=== PATIENT | male | born 1960 | race African-American/Black ===

== ENCOUNTER 2017-04-17 11:56 | Inpatient (IN) | payer MEDICARE, MEDICAID ==
[~2017-04-17] VITALS: Ht 200.7 cm; Wt 99.8 kg
[~2017-04-17 11:56] MED LIST: ABILIFY2 MG ORAL; ABILIFY5 MG ORAL; ALBUTEROL2.5 MG/3 M INH; ALLOPURINOL300 M1 ORAL; ASPIR 8181 MG ORAL; ATIVAN2 MG ORAL; ATORVASTATIN CA20 MG ORAL; BENAZEPRIL HCL10 MG ORAL; BISACODYL5 MG ORAL; CIPROFLOXACIN500 M2 ORAL; COGENTIN1 MG ORAL; DEPAKOTE250 MG PO; DEPAKOTE500 MG PO; DILANTIN100 MG ORAL; DILANTIN100 MG PO; DOCUSATE SODIU100 MG ORAL; LOVENOX10 M4 SUBQ; MAGNESIUM HYDR500 GM MC; METFORMIN HCL500 M1 ORAL; MINERAL OIL EN133 ML RC; MYLANTA30 M1 PO; NITROSTAT0.4 M1 SL; NORCO 5-325 TA1 EACH ORAL; PAXIL10 MG ORAL; PHENYTOIN SODI100 MG PO; PROAIR HFA8.5 GM INH; PROTONIX40 MG ORAL; REGLAN5 MG ORAL; RESTORIL15 MG ORAL; RISPERDAL2 MG ORAL; TYLENOL325 MG ORAL
[2017-04-17] MEDS ORDERED: Sodium Chloride 500ML 500 ML IV ONE (12:13)
[2017-04-17 12:19] VITALS: BP 101/69
[2017-04-17] MEDS ORDERED: Morphine Sulfate 4mg/ml Inj IVP ONE (12:30)
--- NOTE | 2017-04-17 14:14 | Diagnostic Imaging Report ---
Indication: Chest pain Technique: XRAY Chest 1v Comparison: 12/14/2014 Findings: Left-sided dual-lead pacer unchanged in position with lead tips projecting over the expected regions of the right atrium and ventricle. Heart size and mediastinal contours are stable. There is no focal airspace consolidation, pleural effusion or pneumothorax. No acute osseous abnormality is identified. Impression: No radiographic evidence of acute cardiopulmonary disease. No significant interval change compared to the prior exam.
[2017-04-17 14:30] VITALS: BP 112/78
[2017-04-17 14:35] LABS: BASOPHILS % (AUTO) 0.9 % (0.0-2.0); EOSINOPHILS % (AUTO) 1.9 % (0.0-3.0); HEMATOCRIT 42.8 % (42.0-52.0); HEMOGLOBIN 13.8 G/DL (14.2-18.0); LYMPHOCYTES % (AUTO) 36.3 % (20.0-45.0); MEAN CORPUSCULAR VOLUME 89 FL (80-99); MONOCYTES % (AUTO) 6.7 % (1.0-10.0); NEUTROPHILS % (AUTO) 54.1 % (45.0-75.0); PLATELET COUNT 212 K/UL (150-450); RED BLOOD COUNT 4.82 M/UL (4.70-6.10); RED CELL DISTRIBUTION WIDTH 13.5 % (11.6-14.8); WHITE BLOOD COUNT 5.2 K/UL (4.8-10.8)
[2017-04-17 14:36] LABS: ANION GAP 4 mmol/L (5-15); BLOOD UREA NITROGEN 15 mg/dL (7-18); CALCIUM 9.6 MG/DL (8.5-10.1); CARBON DIOXIDE 33 MMOL/L (21-32); CHLORIDE 99 MMOL/L (98-107); CREATININE 0.8 MG/DL (0.55-1.30); POTASSIUM 4.6 MMOL/L (3.5-5.1); SODIUM 136 MMOL/L (136-145)
[2017-04-17 14:49] LABS: ALANINE AMINOTRANSFERASE 32 U/L (12-78); ALBUMIN 3.2 G/DL (3.4-5.0); ALBUMIN/GLOBULIN RATIO 0.7 (1.0-2.7); ALKALINE PHOSPHATASE 83 U/L (46-116); ASPARTATE AMINO TRANSFERASE 24 U/L (15-37); BILIRUBIN,TOTAL 0.2 MG/DL (0.2-1.0); CKMB 0.5 NG/ML (0.0-3.6); CREATINE KINASE 86 U/L (26-308)
--- NOTE | 2017-04-17 15:07 | Emergency Room Report ---
History of Present Illness General Chief Complaint: Chest Pain Source: Patient Present Illness HPI 56-year-old male presents to ED complaining of chest pain started earlier today after exercising. His pain was a 10 out of 10, pressure-like, left-sided, nonradiating. Patient lives in senior care facility. Patient was given aspirin and nitroglycerin x3 by EMS. States chest pain improved. Denies drug use. Admits to smoking. No aggravating relieving factors. Denies any other associated symptoms Allergies: Coded Allergies: PENICILLIN (Unverified Allergy, Mild, 10/24/14) IBUPROFEN (Unverified Allergy, Unknown, 07/25/14) PENICILLIN G (Unverified Allergy, Unknown, 04/06/15) PENICILLINS (Unverified Allergy, Unknown, 07/25/14) Patient History Past Medical History: HTN, CAD, asthma, GERD Past Surgical History: pacemaker Pertinent Family History: none Social History: Denies: smoking, alcohol use, drug use Immunizations: UTD Reviewed Nursing Documentation: PMH: Agreed, PSxH: Agreed Nursing Documentation-PMH Hx Cardiac Problems: Yes - CP Hx Hypertension: Yes Hx Pacemaker: Yes - Hep C Hx Asthma: Yes Hx Diabetes: Yes Hx Cancer: No Hx Gastrointestinal Problems: Yes - GERD Hx Neurological Problems: Yes Hx Seizures: Yes Hx Headaches: Yes Review of Systems All Other Systems: negative except mentioned in HPI Physical Exam Vital Signs Date Time Temp Pulse Resp B/P (MAP) Pulse Ox O2 Delivery O2 Flow Rate FiO2 04/17/17 12:05 98.8 94 16 103/69 99 Room Air Sp02 EP Interpretation: reviewed, normal General Appearance: no apparent distress, alert, GCS 15, non-toxic Head: normocephalic, atraumatic Eyes: bilateral eye normal inspection, bilateral eye PERRL ENT: hearing grossly normal, normal pharynx, no angioedema, normal voice Neck: full range of motion, supple/symm/no masses Respiratory: chest non-tender, lungs clear, normal breath sounds, speaking full sentences Cardiovascular #1: regular rate, rhythm, no edema Cardiovascular #2: 2+ carotid (R), 2+ carotid (L), 2+ radial (R), 2+ radial (L) , 2+ dorsalis pedis (R), 2+ dorsalis pedis (L) Gastrointestinal: normal bowel sounds, non tender, soft, non-distended, no guarding, no rebound Rectal: deferred Genitourinary: normal inspection, no CVA tenderness Musculoskeletal: back normal, gait/station normal, normal range of motion, non- tender Neurologic: alert, oriented x3, responsive, motor strength/tone normal, sensory intact, speech normal Psychiatric: judgement/insight normal, memory normal, mood/affect normal, no suicidal/homicidal ideation Reflexes: 3+ bicep (R), 3+ bicep (L), 3+ tricep (R), 3+ tricep (L), 3+ knee (R) , 3+ knee (L) Skin: normal color, no rash, warm/dry, well hydrated Lymphatic: no adenopathy Medical Decision Making Diagnostic Impression: Primary Impression: ACS (acute coronary syndrome) ER Course Hospital Course 56-year-old male presents ED complaining of chest pain. improved after NTG Differential diagnoses include: AL/unstable angina, contusion, muscle strain, PTX, rib fracture Clinical course Patient placed on stretcher. on clinical research monitor. After initial history and physical I ordered labs, EKG, chest x-ray, morphine labs reviewed- no leukocytosis, hb/hct stable,electrolytes ok, trop negative, UTox negative EKG - NSR, no acute ischemic changes interpreted by me Chest x-ray- pacemaker, no acute process Case discussed with Dr. Leon and he agreed to accept the patient to his service for further care and support I. I feel this is a highly complex case requiring extensive working including EKG/Rhythm strip, Xray/CT/US, Blood/urine lab work, repeat exams while in ED, and administration of strong opiates/narcotics for pain control, admission to hospital or close patient follow up. Diagnosis - ACS admitted to telemetry in serious condition Labs Test 04/17/17 13:45 White Blood Count 5.2 K/UL (4.8-10.8) Red Blood Count 4.82 M/UL (4.70-6.10) Hemoglobin 13.8 G/DL (14.2-18.0) Hematocrit 42.8 % (42.0-52.0) Mean Corpuscular Volume 89 FL (80-99) Mean Corpuscular Hemoglobin 28.7 PG (27.0-31.0) Mean Corpuscular Hemoglobin Concent 32.2 G/DL (32.0-36.0) Red Cell Distribution Width 13.5 % (11.6-14.8) Platelet Count 212 K/UL (150-450) Mean Platelet Volume 5.1 FL (6.5-10.1) Neutrophils (%) (Auto) 54.1 % (45.0-75.0) Lymphocytes (%) (Auto) 36.3 % (20.0-45.0) Monocytes (%) (Auto) 6.7 % (1.0-10.0) Eosinophils (%) (Auto) 1.9 % (0.0-3.0) Basophils (%) (Auto) 0.9 % (0.0-2.0) Sodium Level 136 MMOL/L (136-145) Potassium Level 4.6 MMOL/L (3.5-5.1) Chloride Level 99 MMOL/L (98-107) Carbon Dioxide Level 33 MMOL/L (21-32) Anion Gap 4 mmol/L (5-15) Blood Urea Nitrogen 15 mg/dL (7-18) Creatinine 0.8 MG/DL (0.55-1.30) Estimat Glomerular Filtration Rate > 60 mL/min (>60) Glucose Level 76 MG/DL (74-106) Calcium Level 9.6 MG/DL (8.5-10.1) Total Bilirubin 0.2 MG/DL (0.2-1.0) Aspartate Amino Transf (AST/SGOT) 24 U/L (15-37) Alanine Aminotransferase (ALT/SGPT) 32 U/L (12-78) Alkaline Phosphatase 83 U/L (46-116) Total Creatine Kinase 86 U/L (26-308) Creatine Kinase MB 0.5 NG/ML (0.0-3.6) Creatine Kinase MB Relative Index 0.5 Troponin I 0.000 ng/mL (0.000-0.056) Pro-B-Type Natriuretic Peptide 19 pg/mL (0-125) Total Protein 8.1 G/DL (6.4-8.2) Albumin 3.2 G/DL (3.4-5.0) Globulin 4.9 g/dL Albumin/Globulin Ratio 0.7 (1.0-2.7) Urine Opiates Screen Negative (NEGATIVE) Urine Barbiturates Screen Negative (NEGATIVE) Phencyclidine (PCP) Screen Negative (NEGATIVE) Urine Amphetamines Screen Negative (NEGATIVE) Urine Benzodiazepines Screen Negative (NEGATIVE) Urine Cocaine Screen Negative (NEGATIVE) Urine Marijuana (THC) Screen Negative (NEGATIVE) EKG Diagnostic Results Rate: normal Rhythm: NSR ST Segments: no acute changes ASA given to the pt in ED: No - given by ems Rhythm Strip Diag. Results EP Interpretation: yes Rhythm: NSR, no PVC's, no ectopy Chest X-Ray Diagnostic Results Chest X-Ray Diagnostic Results : Chest X-Ray Ordered: Yes # of Views/Limited/Complete: 1 View Indication: Chest Pain EP Interpretation: Yes Interpretation: no consolidation, no effusion, no pneumothorax, no acute cardiopulmonary disease, other - pacemaker Impression: No acute disease Electronically Signed by: Electronically signed by Nathan Rodriguez MD Last Vital Signs Date Time Temp Pulse Resp B/P (MAP) Pulse Ox O2 Delivery O2 Flow Rate FiO2 04/17/17 14:30 97.1 65 13 112/78 100 Room Air Status: improved Disposition: ADMITTED INPATIENT Condition: Serious Referrals: NON PHYSICIAN (PCP) NATHAN RODRIGUEZ M.D. Apr 17, 2017 15:07
[2017-04-17 16:20] VITALS: BP 121/77
[2017-04-17] MEDS ORDERED: Nitroglycerin Subl 0.4mg tab SL PRN (16:30)
[2017-04-17] MEDS ORDERED: Albuterol/Ipratropium 3ml neb HHN PRN (16:30)
[2017-04-17] MEDS ORDERED: Enalaprilat 2.5mg/2ml Inj IV PRN (16:30)
[2017-04-17] MEDS ORDERED: dilTIAZem HCl 25mg/5ml Inj IV PRN (16:30)
[2017-04-17] MEDS ORDERED: Miralax 17gm pkt ORAL PRN (16:30)
[2017-04-17] MEDS: Morphine Sulfate 2mg/ml Inj IVP PRN (18:43)
[2017-04-17 20:00] VITALS: BP 101/63
--- NOTE | 2017-04-17 20:07 | Cardiology Progress Note ---
Assessment/Plan Assessment/Plan [id number] Objective Last 24 Hour Vital Signs Date Time Temp Pulse Resp B/P (MAP) Pulse Ox O2 Delivery O2 Flow Rate FiO2 04/17/17 16:20 96.8 75 18 121/77 95 Room Air 04/17/17 15:09 65 13 112/78 100 Room Air 04/17/17 15:08 97.1 04/17/17 14:30 97.1 65 13 112/78 100 Room Air 04/17/17 12:30 Room Air 04/17/17 12:19 97.3 78 14 101/69 96 Room Air 04/17/17 12:05 98.8 94 16 103/69 99 Room Air Laboratory Tests Test 04/17/17 13:45 04/17/17 18:25 White Blood Count 5.2 K/UL (4.8-10.8) Red Blood Count 4.82 M/UL (4.70-6.10) Hemoglobin 13.8 G/DL (14.2-18.0) L Hematocrit 42.8 % (42.0-52.0) Mean Corpuscular Volume 89 FL (80-99) Mean Corpuscular Hemoglobin 28.7 PG (27.0-31.0) Mean Corpuscular Hemoglobin Concent 32.2 G/DL (32.0-36.0) Red Cell Distribution Width 13.5 % (11.6-14.8) Platelet Count 212 K/UL (150-450) Mean Platelet Volume 5.1 FL (6.5-10.1) L Neutrophils (%) (Auto) 54.1 % (45.0-75.0) Lymphocytes (%) (Auto) 36.3 % (20.0-45.0) Monocytes (%) (Auto) 6.7 % (1.0-10.0) Eosinophils (%) (Auto) 1.9 % (0.0-3.0) Basophils (%) (Auto) 0.9 % (0.0-2.0) Sodium Level 136 MMOL/L (136-145) Potassium Level 4.6 MMOL/L (3.5-5.1) Chloride Level 99 MMOL/L (98-107) Carbon Dioxide Level 33 MMOL/L (21-32) H Anion Gap 4 mmol/L (5-15) L Blood Urea Nitrogen 15 mg/dL (7-18) Creatinine 0.8 MG/DL (0.55-1.30) Estimat Glomerular Filtration Rate > 60 mL/min (>60) Glucose Level 76 MG/DL (74-106) Calcium Level 9.6 MG/DL (8.5-10.1) Total Bilirubin 0.2 MG/DL (0.2-1.0) Aspartate Amino Transf (AST/SGOT) 24 U/L (15-37) Alanine Aminotransferase (ALT/SGPT) 32 U/L (12-78) Alkaline Phosphatase 83 U/L (46-116) Total Creatine Kinase 86 U/L (26-308) Creatine Kinase MB 0.5 NG/ML (0.0-3.6) Creatine Kinase MB Relative Index 0.5 Troponin I 0.000 ng/mL (0.000-0.056) 0.000 ng/mL (0.000-0.056) Pro-B-Type Natriuretic Peptide 19 pg/mL (0-125) Total Protein 8.1 G/DL (6.4-8.2) Albumin 3.2 G/DL (3.4-5.0) L Globulin 4.9 g/dL Albumin/Globulin Ratio 0.7 (1.0-2.7) L Urine Opiates Screen Negative (NEGATIVE) Urine Barbiturates Screen Negative (NEGATIVE) Phencyclidine (PCP) Screen Negative (NEGATIVE) Urine Amphetamines Screen Negative (NEGATIVE) Urine Benzodiazepines Screen Negative (NEGATIVE) Urine Cocaine Screen Negative (NEGATIVE) Urine Marijuana (THC) Screen Negative (NEGATIVE) LYNDSEY TAYLOR Apr 17, 2017 20:07
[2017-04-17] MEDS ORDERED: Lexiscan 0.4mg/5ml syringe IV PRN (20:15)
[2017-04-17] MEDS: Phenytoin 100mg cap ORAL SCH (21:14)
[2017-04-17] MEDS: Heparin 5000 units/ml inj SUBQ SCH (21:21)
--- NOTE | 2017-04-17 21:45 | Consultation ---
DATE OF CONSULTATION: 04/17/2017 CONSULTING PHYSICIAN: Munir Rosa M.D. REFERRING PHYSICIAN: Anusha Leon M.D. REASON FOR REFERRAL: Chest pain. HISTORY OF PRESENT ILLNESS: This is a very unfortunate middle-aged gentleman with history of multiple medical problems including cardiac problems. Apparently he has had a history of stents put in few years ago, one stent indicate the patient apparently did some exercises with his upper extremities and got some cigarettes and eventually while smoking developed some pain in the chest as if it was being punched in the chest, lasted approximately 15 minutes or so, felt dizzy, asked somebody to help him sit and they sat him down and eventually the patient was brought to the emergency room at [facility]. The ambulance report indicates that the patient was complaining of chest pain for 20 minutes prior to their arrival, substernal, pressure-like 01/03. He resides in a convalescent facility. Apparently the patient is living in a wheelchair and the patient apparently has a history of angina, no nitroglycerin was given. EKG was performed. Aspirin and nitroglycerin was given. No shortness of breath. No neurological deficits. The patient was transferred to [facility] where he was admitted and this consultation subsequently requested by Dr. Leon to help manage the patient's pain. He does not have any chest pain at this time. He does not really remember what exactly exacerbated or relieved the pain. He has had a history of stent put in, but apparently as he recalls that was a different sensation that he is experiencing today. There are episodes of PND and two pillow orthopnea, occasionally sits up because of shortness of breath and notified the nurses because he is short of breath. He had a history of permanent pacemaker implantation in 2011. No cancer. PAST MEDICAL HISTORY: He indicates past medical history is positive for history of coronary disease as mentioned with stent, history of hypertension, diabetes mellitus, substance abuse, permanent pacemaker implantation. No history of heart attack. No cancer. No stroke. He does have hepatitis. He has COPD. No ulcers. No kidney problems. He does have cirrhosis of the liver. No thyroid problems, anemia, or arthritis. He has as mentioned history of pacemaker implantation. He also has a history of seizures. ALLERGIES: He is allergic to penicillin and Motrin. SOCIAL HISTORY: He used to drink and use drugs but he has quit those a few months ago. He still smokes. REVIEW OF SYSTEMS: GASTROINTESTINAL: Negative. GENITOURINARY: Negative. PULMONARY: Negative. CONSTITUTIONAL: Negative. PHYSICAL EXAMINATION: GENERAL: Shows to be middle-aged gentleman, in no respiratory distress, very difficult to understand him. NECK: Supple. No jugular venous distention. LUNGS: Clear to auscultation and percussion. CARDIAC: S1 is normal. S2 is normal. Regular rate and rhythm. No heaves, thrills, gallops, or rubs. ABDOMEN: Soft and nontender. Positive bowel sounds. EXTREMITIES: There is no clubbing, cyanosis, nor is there any edema. NEUROLOGICAL: He is awake, alert, responsive, and in no apparent distress. LABORATORY AND DIAGNOSTIC DATA: EKG shows normal sinus rhythm, no ST or T-wave abnormalities. Two sets of cardiac enzymes are negative. His blood tests shows sodium 132, potassium 4.3, chloride 99, bicarbonate 32, BUN of 15, creatinine 0.8, glucose of 76. Troponins are negative on two separate occasions but only about 5 hours apart. Albumin of 3.2. Tox screen is negative. Chest x-ray performed is fairly unremarkable. ASSESSMENT AND PLAN: 1. Chest pain. 2. Diabetes. 3. Hypertension. 4. Coronary artery disease status post stent. 5. History of permanent pacemaker implantation. 6. Hypertension. 7. history of seizures. 8. Hepatitis C history. 9. Cirrhosis of the liver. This patient was seen in cardiac consultation. Two sets of cardiac enzymes about 5 hours apart were negative. Repeat cardiac enzymes will be ordered for tomorrow morning. EKG is fairly unremarkable. Troponins are negative. It is possible that the pain may be reproducible on palpation of the chest wall. However, the patient has significant coronary artery disease and risk factors for coronary disease that warrants performing a perfusion imaging, this will be ordered for tomorrow morning. An echocardiogram will be ordered and the patient will be followed. Munir Rosa M.D. DR: Bin JOB#: [id number] CC:
[2017-04-18] VITALS: BP 93/65
[2017-04-18 04:00] VITALS: BP 113/68
[2017-04-18] MEDS: Morphine Sulfate 2mg/ml Inj IVP PRN ×3 (04:59→17:58)
[2017-04-18 08:00] VITALS: BP 117/76
[2017-04-18 08:34] LABS: BASOPHILS % (AUTO) 1.1 % (0.0-2.0); EOSINOPHILS % (AUTO) 2.3 % (0.0-3.0); HEMATOCRIT 40.9 % (42.0-52.0); HEMOGLOBIN 13.4 G/DL (14.2-18.0); MEAN CORPUSCULAR VOLUME 88 FL (80-99); MONOCYTES % (AUTO) 6.2 % (1.0-10.0); NEUTROPHILS % (AUTO) 43.4 % (45.0-75.0); PLATELET COUNT 197 K/UL (150-450); RED BLOOD COUNT 4.63 M/UL (4.70-6.10); RED CELL DISTRIBUTION WIDTH 13.2 % (11.6-14.8); WHITE BLOOD COUNT 3.6 K/UL (4.8-10.8)
[2017-04-18] MEDS ORDERED: Benazepril 10mg tab ORAL SCH (09:00)
[2017-04-18] MEDS ORDERED: PARoxetine 10mg tab ORAL SCH (09:00)
[2017-04-18] MEDS: Heparin 5000 units/ml inj SUBQ SCH ×2 (09:07→21:00)
[2017-04-18 09:22] LABS: CHOLESTEROL 188 MG/DL (< 200); HDL CHOLESTEROL 69 MG/DL (40-60); TRIGLYCERIDES 108 MG/DL (30-150)
--- NOTE | 2017-04-18 10:21 | History and Physical ---
History of Present Illness General Date patient seen: Apr 18, 2017 Reason for Hospitalization: Chest Pain Present Illness HPI 56-year-old male with hx of DM, psychosis, presents to ED complaining of chest pain started earlier today after exercising. His pain was a 10 out of 10, pressure-like, left-sided, nonradiating. Patient lives in half-way facility. Patient was given aspirin and nitroglycerin x3 by EMS. States chest pain improved. He is admitted to telemetry for further work up. Allergies: Coded Allergies: PENICILLIN (Unverified Allergy, Mild, 10/24/14) IBUPROFEN (Unverified Allergy, Unknown, 07/25/14) PENICILLIN G (Unverified Allergy, Unknown, 04/06/15) PENICILLINS (Unverified Allergy, Unknown, 07/25/14) Medication History Scheduled Albuterol Sulfate* (Albuterol Sulfate Hhn*), 3 ML INH THREE TIMES A DAY, ( Reported) Allopurinol* (Allopurinol*), 300 MG ORAL DAILY, (Reported) Aripiprazole* (Abilify*), 5 MG ORAL BEDTIME, (Reported) Aripiprazole* (Abilify*), 5 MG ORAL DAILY Aspirin* (Aspir 81*), 81 MG ORAL DAILY, (Reported) Atorvastatin Calcium* (Atorvastatin Calcium*), 20 MG ORAL BEDTIME, (Reported) Benazepril Hcl* (Benazepril Hcl*), 10 MG ORAL DAILY, (Reported) Benztropine Mesylate (Cogentin 1mg*), 1 MG ORAL EVERY 12 HOURS, (Reported) Ciprofloxacin Hcl* (Ciprofloxacin Hcl*), 500 MG ORAL Q12H Docusate Sodium* (Docusate Sodium*), 100 MG ORAL BID, (Reported) Metformin Hcl* (Metformin Hcl*), 500 MG ORAL TWICE A DAY, (Reported) Mineral Oil (Mineral Oil Enema), 133 ML RC PRN, (Reported) Pantoprazole* (Protonix*), 40 MG ORAL DAILY, (Reported) Paroxetine Hcl* (Paxil*), 10 MG ORAL DAILY, (Reported) Phenytoin Sodium Extended* (Dilantin*), 200 MG PO BEDTIME, (Reported) Risperidone* (Risperdal*), 2 MG ORAL BID, (Reported) Risperidone* (Risperdal*), 2 MG ORAL DAILY Scheduled PRN Acetaminophen (Tylenol), 650 MG ORAL EVERY 4 HOURS PRN for Pain Scale (3-5), ( Reported) Al Hydroxide/mg Hydroxide (Mag-Al Liquid), 30 ML PO Q4HR PRN for prn, (Reported) Albuterol Sulfate* (Proair Hfa*), 1 PUFF INH Q6H PRN for prn, (Reported) Bisacodyl* (Dulcolax*), 10 MG ORAL DAILY PRN for prn, (Reported) Lorazepam* (Ativan*), 1 MG ORAL EVERY 6 HOURS PRN for prn, (Reported) Nitroglycerin (Nitrostat), 0.4 MG SL Q5M X3 DOSES PRN for Prn Chest Pain, ( Reported) Miscellaneous Medications Magnesium Hydroxide (Magnesium Hydroxide), 500 GM MC, (Reported) Patient History Healthcare decision maker Resuscitation status Advanced Directive on File Past Medical/Surgical History Past Medical/Surgical History: (1) Cirrhosis of liver (2) Seizure disorder Review of Systems All Other Systems: negative except mentioned in HPI Physical Exam General Appearance: cachetic Lines, tubes and drains: peripheral Cardiovascular/Chest: normal peripheral pulses, normal rate Abdomen: normal bowel sounds, non tender Genitourinary/Rectal: normal genital exam, normal rectal exam Extremities: normal range of motion Skin Exam: normal pigmentation 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 Last 24 Hour Vital Signs Date Time Temp Pulse Resp B/P (MAP) Pulse Ox O2 Delivery O2 Flow Rate FiO2 04/18/17 09:06 117/76 04/18/17 08:00 97.9 61 21 117/76 96 Room Air 04/18/17 04:00 60 04/18/17 04:00 97.7 60 20 113/68 94 Room Air 04/18/17 00:00 97.7 80 18 93/65 92 Room Air 04/18/17 00:00 76 04/17/17 20:00 71 04/17/17 20:00 62 20 Room Air 21 04/17/17 20:00 98.1 63 20 101/63 93 Room Air 04/17/17 16:20 96.8 75 18 121/77 95 Room Air 04/17/17 15:09 65 13 112/78 100 Room Air 04/17/17 15:08 97.1 04/17/17 14:30 97.1 65 13 112/78 100 Room Air 04/17/17 12:30 Room Air 04/17/17 12:19 97.3 78 14 101/69 96 Room Air 04/17/17 12:05 98.8 94 16 103/69 99 Room Air Intake and Output 04/17/17 04/18/17 18:59 06:59 Intake Total 0 ml 200 ml Output Total 550 ml Balance 0 ml -350 ml Intake Oral 0 ml 200 ml Output Urine Total 550 ml Laboratory Tests Test 04/17/17 13:45 04/17/17 18:25 04/18/17 07:50 White Blood Count 5.2 K/UL (4.8-10.8) 3.6 K/UL (4.8-10.8) L Red Blood Count 4.82 M/UL (4.70-6.10) 4.63 M/UL (4.70-6.10) L Hemoglobin 13.8 G/DL (14.2-18.0) L 13.4 G/DL (14.2-18.0) L Hematocrit 42.8 % (42.0-52.0) 40.9 % (42.0-52.0) L Mean Corpuscular Volume 89 FL (80-99) 88 FL (80-99) Mean Corpuscular Hemoglobin 28.7 PG (27.0-31.0) 28.9 PG (27.0-31.0) Mean Corpuscular Hemoglobin Concent 32.2 G/DL (32.0-36.0) 32.7 G/DL (32.0-36.0) Red Cell Distribution Width 13.5 % (11.6-14.8) 13.2 % (11.6-14.8) Platelet Count 212 K/UL (150-450) 197 K/UL (150-450) Mean Platelet Volume 5.1 FL (6.5-10.1) L 4.9 FL (6.5-10.1) L Neutrophils (%) (Auto) 54.1 % (45.0-75.0) 43.4 % (45.0-75.0) L Lymphocytes (%) (Auto) 36.3 % (20.0-45.0) 47.0 % (20.0-45.0) H Monocytes (%) (Auto) 6.7 % (1.0-10.0) 6.2 % (1.0-10.0) Eosinophils (%) (Auto) 1.9 % (0.0-3.0) 2.3 % (0.0-3.0) Basophils (%) (Auto) 0.9 % (0.0-2.0) 1.1 % (0.0-2.0) Sodium Level 136 MMOL/L (136-145) Potassium Level 4.6 MMOL/L (3.5-5.1) Chloride Level 99 MMOL/L (98-107) Carbon Dioxide Level 33 MMOL/L (21-32) H Anion Gap 4 mmol/L (5-15) L Blood Urea Nitrogen 15 mg/dL (7-18) Creatinine 0.8 MG/DL (0.55-1.30) Estimat Glomerular Filtration Rate > 60 mL/min (>60) Glucose Level 76 MG/DL (74-106) Calcium Level 9.6 MG/DL (8.5-10.1) Total Bilirubin 0.2 MG/DL (0.2-1.0) Aspartate Amino Transf (AST/SGOT) 24 U/L (15-37) Alanine Aminotransferase (ALT/SGPT) 32 U/L (12-78) Alkaline Phosphatase 83 U/L (46-116) Total Creatine Kinase 86 U/L (26-308) Creatine Kinase MB 0.5 NG/ML (0.0-3.6) Creatine Kinase MB Relative Index 0.5 Troponin I 0.000 ng/mL (0.000-0.056) 0.000 ng/mL (0.000-0.056) 0.000 ng/mL (0.000-0.056) Pro-B-Type Natriuretic Peptide 19 pg/mL (0-125) Total Protein 8.1 G/DL (6.4-8.2) Albumin 3.2 G/DL (3.4-5.0) L Globulin 4.9 g/dL Albumin/Globulin Ratio 0.7 (1.0-2.7) L Urine Opiates Screen Negative (NEGATIVE) Urine Barbiturates Screen Negative (NEGATIVE) Phencyclidine (PCP) Screen Negative (NEGATIVE) Urine Amphetamines Screen Negative (NEGATIVE) Urine Benzodiazepines Screen Negative (NEGATIVE) Urine Cocaine Screen Negative (NEGATIVE) Urine Marijuana (THC) Screen Negative (NEGATIVE) Prothrombin Time 10.0 SEC (9.30-11.50) Prothromb Time International Ratio 1.0 (0.9-1.1) Activated Partial Thromboplast Time 30 SEC (23-33) C-Reactive Protein, Quantitative 0.5 mg/dL (0.00-0.90) Triglycerides Level 108 MG/DL (30-150) Cholesterol Level 188 MG/DL (< 200) LDL Cholesterol 100 mg/dL (<100) HDL Cholesterol 69 MG/DL (40-60) H Cholesterol/HDL Ratio 2.7 (3.3-4.4) L Thyroid Stimulating Hormone (TSH) 0.634 uiU/mL (0.358-3.740) Height (Feet): 6 Height (Inches): 7.00 Weight (Pounds): 220 Medications Current Medications Medications (Trade) Dose Ordered Sig/Leidy Route PRN Reason Start Time Stop Time Status Last Admin Dose Admin Acetaminophen (Tylenol) 650 mg Q4H PRN ORAL FEVER 04/17/17 16:30 05/17/17 16:29 Albuterol/ Ipratropium (Albuterol/ Ipratropium) 3 ml Q4H PRN HHN Shortness of Breath 04/17/17 16:30 04/22/17 16:29 Allopurinol (Allopurinol) 300 mg DAILY ORAL 04/18/17 09:00 05/18/17 08:59 04/18/17 09:06 Aripiprazole (Abilify) 5 mg BEDTIME ORAL 04/17/17 21:00 05/17/17 20:59 04/17/17 21:14 Benazepril HCl (Lotensin) 10 mg DAILY ORAL 04/18/17 09:00 05/18/17 08:59 04/18/17 09:06 Diltiazem HCl (Cardizem) 10 mg Q1H PRN IV heart rate more than 120, 04/17/17 16:30 05/17/17 16:29 Enalaprilat (Vasotec) 2.5 mg Q6H PRN IV sbp more than 160 04/17/17 16:30 05/17/17 16:29 Heparin Sodium (Porcine) (Heparin 5000 units/ml) 5,000 units EVERY 12 HOURS SUBQ 04/17/17 21:00 05/17/17 20:59 04/18/17 09:07 Morphine Sulfate (Morphine Sulfate) 2 mg Q4H PRN IVP severe Pain (Pain Scale 7-10) 04/17/17 16:30 04/24/17 16:29 04/18/17 04:59 Nitroglycerin (Ntg) 0.4 mg Every 5 Minutes PRN SL Prn Chest Pain 04/17/17 16:30 05/17/17 16:29 Ondansetron HCl (Zofran) 4 mg Q6H PRN IVP Nausea & Vomiting 04/17/17 16:30 05/17/17 16:29 Pantoprazole (Protonix) 40 mg DAILY ORAL 04/18/17 09:00 05/18/17 08:59 04/18/17 09:06 Paroxetine HCl (Paxil) 10 mg DAILY ORAL 04/18/17 09:00 05/18/17 08:59 04/18/17 09:06 Phenytoin (Dilantin) 200 mg BEDTIME ORAL 04/17/17 21:00 05/17/17 20:59 04/17/17 21:14 Polyethylene Glycol (Miralax) 17 gm DAILYPRN PRN ORAL Constipation 04/17/17 16:30 05/17/17 16:29 Regadenoson (Lexiscan) 0.4 mg ONCE PRN IV STRESS TEST 04/17/17 20:15 04/18/17 23:59 Risperidone (RisperDAL) 2 mg BID ORAL 04/17/17 18:00 05/17/17 17:59 04/18/17 09:06 Temazepam (Restoril) 15 mg HSPRN PRN ORAL Insomnia 04/17/17 16:30 04/24/17 16:29 Assessment/Plan Problem List: (1) ACS (acute coronary syndrome) ICD Codes: I24.9 - Acute ischemic heart disease, unspecified SNOMED: 056069278 (2) Seizure disorder ICD Codes: G40.909 - Epilepsy, unspecified, not intractable,without status epilepticus SNOMED: 047647975 (3) Cirrhosis of liver ICD Codes: K74.60 - Cirrhosis of liver SNOMED: 78150064 (4) Diabetes mellitus ICD Codes: E11.9 - Type 2 diabetes mellitus without complications SNOMED: 32366353 Assessment/Plan serial ekg, troponin, echo cardiology work up/ echo sliding scale continue psychiatric meds. dvt prophylaxis. NEYAMR PAYTON Apr 18, 2017 10:21
[2017-04-18 12:00] VITALS: BP 95/59
--- NOTE | 2017-04-18 13:47 | Cardiology Progress Note ---
Assessment/Plan Assessment/Plan 1. Chest pain. 2. Diabetes. 3. Hypertension. 4. Coronary artery disease status post stent. 5. History of permanent pacemaker implantation. 6. Hypertension. 7. history of seizures. 8. Hepatitis C history. 9. Cirrhosis of the liver. trop neg ekg neg tele reviewed persoanlly as vs ap vp emerging media stress test clinsially and by ekg neg await Cardiolite perfusion results ok to dc back if neg ecotrin and lipitor to be continued Subjective Cardiovascular: Denies: chest pain, lightheadedness, palpitations Respiratory: Denies: shortness of breath Gastrointestinal/Abdominal: Denies: abdominal pain Genitourinary: Denies: burning Objective Last 24 Hour Vital Signs Date Time Temp Pulse Resp B/P (MAP) Pulse Ox O2 Delivery O2 Flow Rate FiO2 04/18/17 12:00 97.5 60 19 95/59 97 Room Air 04/18/17 09:06 117/76 04/18/17 08:00 97.9 61 21 117/76 96 Room Air 04/18/17 06:33 60 18 Room Air 04/18/17 04:00 60 04/18/17 04:00 97.7 60 20 113/68 94 Room Air 04/18/17 00:00 97.7 80 18 93/65 92 Room Air 04/18/17 00:00 76 04/17/17 20:00 71 04/17/17 20:00 62 20 Room Air 21 04/17/17 20:00 98.1 63 20 101/63 93 Room Air 04/17/17 16:20 96.8 75 18 121/77 95 Room Air 04/17/17 15:09 65 13 112/78 100 Room Air 04/17/17 15:08 97.1 04/17/17 14:30 97.1 65 13 112/78 100 Room Air General Appearance: no apparent distress, alert Neck: supple Cardiovascular: normal rate, regular rhythm Respiratory/Chest: lungs clear, normal breath sounds Abdomen: normal bowel sounds, non tender, soft Extremities: no swelling Intake and Output 04/17/17 04/18/17 19:00 07:00 Intake Total 0 ml 200 ml Output Total 550 ml Balance 0 ml -350 ml Intake Oral 0 ml 200 ml Output Urine Total 550 ml Laboratory Tests Test 04/17/17 13:45 1/22/18 18:25 04/18/17 07:50 White Blood Count 5.2 K/UL (4.8-10.8) 3.6 K/UL (4.8-10.8) L Red Blood Count 4.82 M/UL (4.70-6.10) 4.63 M/UL (4.70-6.10) L Hemoglobin 13.8 G/DL (14.2-18.0) L 13.4 G/DL (14.2-18.0) L Hematocrit 42.8 % (42.0-52.0) 40.9 % (42.0-52.0) L Mean Corpuscular Volume 89 FL (80-99) 88 FL (80-99) Mean Corpuscular Hemoglobin 28.7 PG (27.0-31.0) 28.9 PG (27.0-31.0) Mean Corpuscular Hemoglobin Concent 32.2 G/DL (32.0-36.0) 32.7 G/DL (32.0-36.0) Red Cell Distribution Width 13.5 % (11.6-14.8) 13.2 % (11.6-14.8) Platelet Count 212 K/UL (150-450) 197 K/UL (150-450) Mean Platelet Volume 5.1 FL (6.5-10.1) L 4.9 FL (6.5-10.1) L Neutrophils (%) (Auto) 54.1 % (45.0-75.0) 43.4 % (45.0-75.0) L Lymphocytes (%) (Auto) 36.3 % (20.0-45.0) 47.0 % (20.0-45.0) H Monocytes (%) (Auto) 6.7 % (1.0-10.0) 6.2 % (1.0-10.0) Eosinophils (%) (Auto) 1.9 % (0.0-3.0) 2.3 % (0.0-3.0) Basophils (%) (Auto) 0.9 % (0.0-2.0) 1.1 % (0.0-2.0) Sodium Level 136 MMOL/L (136-145) Potassium Level 4.6 MMOL/L (3.5-5.1) Chloride Level 99 MMOL/L (98-107) Carbon Dioxide Level 33 MMOL/L (21-32) H Anion Gap 4 mmol/L (5-15) L Blood Urea Nitrogen 15 mg/dL (7-18) Creatinine 0.8 MG/DL (0.55-1.30) Estimat Glomerular Filtration Rate > 60 mL/min (>60) Glucose Level 76 MG/DL (74-106) Calcium Level 9.6 MG/DL (8.5-10.1) Total Bilirubin 0.2 MG/DL (0.2-1.0) Aspartate Amino Transf (AST/SGOT) 24 U/L (15-37) Alanine Aminotransferase (ALT/SGPT) 32 U/L (12-78) Alkaline Phosphatase 83 U/L (46-116) Total Creatine Kinase 86 U/L (26-308) Creatine Kinase MB 0.5 NG/ML (0.0-3.6) Creatine Kinase MB Relative Index 0.5 Troponin I 0.000 ng/mL (0.000-0.056) 0.000 ng/mL (0.000-0.056) 0.000 ng/mL (0.000-0.056) Pro-B-Type Natriuretic Peptide 19 pg/mL (0-125) Total Protein 8.1 G/DL (6.4-8.2) Albumin 3.2 G/DL (3.4-5.0) L Globulin 4.9 g/dL Albumin/Globulin Ratio 0.7 (1.0-2.7) L Urine Opiates Screen Negative (NEGATIVE) Urine Barbiturates Screen Negative (NEGATIVE) Phencyclidine (PCP) Screen Negative (NEGATIVE) Urine Amphetamines Screen Negative (NEGATIVE) Urine Benzodiazepines Screen Negative (NEGATIVE) Urine Cocaine Screen Negative (NEGATIVE) Urine Marijuana (THC) Screen Negative (NEGATIVE) Prothrombin Time 10.0 SEC (9.30-11.50) Prothromb Time International Ratio 1.0 (0.9-1.1) Activated Partial Thromboplast Time 30 SEC (23-33) C-Reactive Protein, Quantitative 0.5 mg/dL (0.00-0.90) Triglycerides Level 108 MG/DL (30-150) Cholesterol Level 188 MG/DL (< 200) LDL Cholesterol 100 mg/dL (<100) HDL Cholesterol 69 MG/DL (40-60) H Cholesterol/HDL Ratio 2.7 (3.3-4.4) L Thyroid Stimulating Hormone (TSH) 0.634 uiU/mL (0.358-3.740) LYNDSEY TAYLOR Apr 18, 2017 13:47
[2017-04-18] MEDS ORDERED: Aspirin EC 81mg tab ORAL SCH (14:00)
--- NOTE | 2017-04-18 15:55 | Diagnostic Imaging Report ---
Indications: 56-year-old male with chest pain, prior myocardial infarction Technique: Single day single isotope protocol utilized. Initially, resting images obtained using IV administration 10.2 millicuries 99M technetium Myoview. Subsequently, patient underwent treadmill stress testing. See cardiology report for details. During treadmill testing, IV administration 32 mCi 99 M technetium Myoview. SPECT and planar images obtained. SPECT images gated to 8 phases of the cardiac cycle were also obtained, and reformatted into cine images for evaluation of ejection fraction. Comparison: none Findings: Per cardiology report, patient experienced fatigue. Per cardiology report, resting EKG demonstrates normal sinus rhythm. Patient reached a peak heart rate of 137 bpm, just short of the target heart rate [address] changes reported during infusion. Imaging demonstrates a small fixed perfusion defect of the apex that extends slightly into the anteroseptal wall. No definite reversible perfusion defects are demonstrated. Calculated post stress ejection fraction 65%. No focal wall motion abnormality demonstrated Impression: Nonischemic clinical response to pharmacologic stress, per cardiology report Nonischemic electrocardiographic response to pharmacologic stress, per cardiology report Small fixed apical and anteroseptal perfusion defect,, likely related to stated clinical history of prior infarct. Negative for ischemia, at level of stress attained Calculated post stress ejection fraction 65%
[2017-04-18 16:00] VITALS: BP 100/65
--- NOTE | 2017-04-18 17:15 | Cardiology Report ---
APPROVED REPORT EXAM: Two-dimensional and M-mode echocardiogram with Doppler and color Doppler. INDICATION Left ventricular function M-Mode DIMENSIONS IVSd0.8 (0.7-1.1cm)Left Atrium (MM)3.5 (1.6-4.0cm) LVDd5.4 (3.5-5.6cm)Aortic Root3.0 (2.0-3.7cm) PWd0.9 (0.7-1.1cm)Aortic Cusp Exc.2.0 (1.5-2.0cm) LVDs3.9 (2.5-4.0cm) PWs1.3 cm Normal left ventricular chamber size, systolic function and wall motion. Left ventricular ejection fraction estimated to be 55-60%. No evidence of left ventricular hypertrophy. No evidence of pericardial or pleural effusion. Mild right ventricular enlargement by 2D. Moderate right atrial enlargement by 2D. Focal aortic valve sclerosis with adequate cusp excursion. Thickened mitral valve leaflets with normal excursion. Mild mitral annulus and aortic root calcification. Pulmonic valve not well visualized. Normal tricuspid valve structure. IVC dilated at 2.4 cm and collapsible with respiration indicate increased RA pressure. Probable pacemaker wire present in the right side chambers. A color flow and spectral Doppler study was performed and revealed: No aortic regurgitation. Trace mitral regurgitation. Mitral diastolic velocities suggest reduced left ventricular relaxation c/w diastolic dysfunction grade 1. No tricuspid regurgitation.
[2017-04-18 20:45] VITALS: BP 92/62
[2017-04-18] MEDS ORDERED: Atorvastatin 20mg tab ORAL SCH (21:00)
[2017-04-18] MEDS: Phenytoin 100mg cap ORAL SCH (21:00)
--- NOTE | 2017-04-18 22:46 | General Progress Note ---
Assessment/Plan Status: stable, progressing Subjective Date patient seen: Apr 18, 2017 Neurologic/Psychiatric: Reports: anxiety, depressed Allergies: Coded Allergies: PENICILLIN (Unverified Allergy, Mild, 10/24/14) IBUPROFEN (Unverified Allergy, Unknown, 07/25/14) PENICILLIN G (Unverified Allergy, Unknown, 04/06/15) PENICILLINS (Unverified Allergy, Unknown, 07/25/14) Objective Last 24 Hour Vital Signs Date Time Temp Pulse Resp B/P (MAP) Pulse Ox O2 Delivery O2 Flow Rate FiO2 04/18/17 20:45 97.7 71 18 92/62 93 Room Air 04/18/17 19:55 74 20 Room Air 21 04/18/17 16:00 97.9 76 20 100/65 98 Room Air 04/18/17 16:00 70 04/18/17 12:00 97.5 60 19 95/59 97 Room Air 04/18/17 12:00 60 04/18/17 09:06 117/76 04/18/17 08:00 97.9 61 21 117/76 96 Room Air 04/18/17 08:00 60 04/18/17 06:33 60 18 Room Air 04/18/17 04:00 60 04/18/17 04:00 97.7 60 20 113/68 94 Room Air 04/18/17 00:00 97.7 80 18 93/65 92 Room Air 04/18/17 00:00 76 Intake and Output 04/17/17 04/18/17 19:00 07:00 Intake Total 0 ml 200 ml Output Total 550 ml Balance 0 ml -350 ml Intake Oral 0 ml 200 ml Output Urine Total 550 ml Laboratory Tests 04/18/17 07:50: White Blood Count 3.6L, Red Blood Count 4.63L, Hemoglobin 13.4L, Hematocrit 40.9L, Mean Corpuscular Volume 88, Mean Corpuscular Hemoglobin 28.9, Mean Corpuscular Hemoglobin Concent 32.7, Red Cell Distribution Width 13.2, Platelet Count 197, Mean Platelet Volume 4.9L, Neutrophils (%) (Auto) 43.4L, Lymphocytes (%) (Auto) 47.0H, Monocytes (%) (Auto) 6.2, Eosinophils (%) (Auto) 2.3, Basophils (%) (Auto) 1.1, Prothrombin Time 10.0, Prothromb Time International Ratio 1.0, Activated Partial Thromboplast Time 30, Troponin I 0.000, C-Reactive Protein, Quantitative 0.5, Triglycerides Level 108, Cholesterol Level 188, LDL Cholesterol 100, HDL Cholesterol 69H, Cholesterol/HDL Ratio 2.7L, Thyroid Stimulating Hormone (TSH) 0.634 Height (Feet): 6 Height (Inches): 7.00 Weight (Pounds): 220 General Appearance: no apparent distress, alert Tracey Hatfield M.D. Apr 18, 2017 22:46
--- NOTE | 2017-04-18 22:46 | Consultation ---
History of Present Illness General Date patient seen: Apr 17, 2017 Chief Complaint: Chest Pain Present Illness HPI the pt is well known to this md from [facility] his psychiatrist the pt has mmp including schizophrenia' the pt was bib an ambulance for severe ch3st pain in hospital he is anxious Allergies: Coded Allergies: PENICILLIN (Unverified Allergy, Mild, 10/24/14) IBUPROFEN (Unverified Allergy, Unknown, 07/25/14) PENICILLIN G (Unverified Allergy, Unknown, 04/06/15) PENICILLINS (Unverified Allergy, Unknown, 07/25/14) Medication History Scheduled Albuterol Sulfate* (Albuterol Sulfate Hhn*), 3 ML INH THREE TIMES A DAY, ( Reported) Allopurinol* (Allopurinol*), 300 MG ORAL DAILY, (Reported) Aripiprazole* (Abilify*), 5 MG ORAL BEDTIME, (Reported) Aripiprazole* (Abilify*), 5 MG ORAL DAILY Aspirin* (Aspir 81*), 81 MG ORAL DAILY, (Reported) Atorvastatin Calcium* (Atorvastatin Calcium*), 20 MG ORAL BEDTIME, (Reported) Benazepril Hcl* (Benazepril Hcl*), 10 MG ORAL DAILY, (Reported) Benztropine Mesylate (Cogentin 1mg*), 1 MG ORAL EVERY 12 HOURS, (Reported) Ciprofloxacin Hcl* (Ciprofloxacin Hcl*), 500 MG ORAL Q12H Docusate Sodium* (Docusate Sodium*), 100 MG ORAL BID, (Reported) Metformin Hcl* (Metformin Hcl*), 500 MG ORAL TWICE A DAY, (Reported) Mineral Oil (Mineral Oil Enema), 133 ML RC PRN, (Reported) Pantoprazole* (Protonix*), 40 MG ORAL DAILY, (Reported) Paroxetine Hcl* (Paxil*), 10 MG ORAL DAILY, (Reported) Phenytoin Sodium Extended* (Dilantin*), 200 MG PO BEDTIME, (Reported) Risperidone* (Risperdal*), 2 MG ORAL BID, (Reported) Risperidone* (Risperdal*), 2 MG ORAL DAILY Scheduled PRN Acetaminophen (Tylenol), 650 MG ORAL EVERY 4 HOURS PRN for Pain Scale (3-5), ( Reported) Al Hydroxide/mg Hydroxide (Mag-Al Liquid), 30 ML PO Q4HR PRN for prn, (Reported) Albuterol Sulfate* (Proair Hfa*), 1 PUFF INH Q6H PRN for prn, (Reported) Bisacodyl* (Dulcolax*), 10 MG ORAL DAILY PRN for prn, (Reported) Lorazepam* (Ativan*), 1 MG ORAL EVERY 6 HOURS PRN for prn, (Reported) Nitroglycerin (Nitrostat), 0.4 MG SL Q5M X3 DOSES PRN for Prn Chest Pain, ( Reported) Miscellaneous Medications Magnesium Hydroxide (Magnesium Hydroxide), 500 GM MC, (Reported) Patient History Healthcare decision maker Resuscitation status Advanced Directive on File Review of Systems Psychiatric: Reports: prior hx, anxiety, depressed feelings, emotional problems Physical Exam General Appearance: no apparent distress, alert Neurologic: alert, oriented x 3, responsive, normal mood/affect Last 24 Hour Vital Signs Date Time Temp Pulse Resp B/P (MAP) Pulse Ox O2 Delivery O2 Flow Rate FiO2 04/18/17 20:45 97.7 71 18 92/62 93 Room Air 04/18/17 19:55 74 20 Room Air 21 04/18/17 16:00 97.9 76 20 100/65 98 Room Air 04/18/17 16:00 70 04/18/17 12:00 97.5 60 19 95/59 97 Room Air 04/18/17 12:00 60 04/18/17 09:06 117/76 04/18/17 08:00 97.9 61 21 117/76 96 Room Air 04/18/17 08:00 60 04/18/17 06:33 60 18 Room Air 04/18/17 04:00 60 04/18/17 04:00 97.7 60 20 113/68 94 Room Air 04/18/17 00:00 97.7 80 18 93/65 92 Room Air 04/18/17 00:00 76 Intake and Output 04/17/17 04/18/17 19:00 07:00 Intake Total 0 ml 200 ml Output Total 550 ml Balance 0 ml -350 ml Intake Oral 0 ml 200 ml Output Urine Total 550 ml Laboratory Tests Test 04/18/17 07:50 White Blood Count 3.6 K/UL (4.8-10.8) L Red Blood Count 4.63 M/UL (4.70-6.10) L Hemoglobin 13.4 G/DL (14.2-18.0) L Hematocrit 40.9 % (42.0-52.0) L Mean Corpuscular Volume 88 FL (80-99) Mean Corpuscular Hemoglobin 28.9 PG (27.0-31.0) Mean Corpuscular Hemoglobin Concent 32.7 G/DL (32.0-36.0) Red Cell Distribution Width 13.2 % (11.6-14.8) Platelet Count 197 K/UL (150-450) Mean Platelet Volume 4.9 FL (6.5-10.1) L Neutrophils (%) (Auto) 43.4 % (45.0-75.0) L Lymphocytes (%) (Auto) 47.0 % (20.0-45.0) H Monocytes (%) (Auto) 6.2 % (1.0-10.0) Eosinophils (%) (Auto) 2.3 % (0.0-3.0) Basophils (%) (Auto) 1.1 % (0.0-2.0) Prothrombin Time 10.0 SEC (9.30-11.50) Prothromb Time International Ratio 1.0 (0.9-1.1) Activated Partial Thromboplast Time 30 SEC (23-33) Troponin I 0.000 ng/mL (0.000-0.056) C-Reactive Protein, Quantitative 0.5 mg/dL (0.00-0.90) Triglycerides Level 108 MG/DL (30-150) Cholesterol Level 188 MG/DL (< 200) LDL Cholesterol 100 mg/dL (<100) HDL Cholesterol 69 MG/DL (40-60) H Cholesterol/HDL Ratio 2.7 (3.3-4.4) L Thyroid Stimulating Hormone (TSH) 0.634 uiU/mL (0.358-3.740) Height (Feet): 6 Height (Inches): 7.00 Weight (Pounds): 220 Medications Current Medications Medications (Trade) Dose Ordered Sig/Leidy Route PRN Reason Start Time Stop Time Status Last Admin Dose Admin Acetaminophen (Tylenol) 650 mg Q4H PRN ORAL FEVER 04/17/17 16:30 05/17/17 16:29 Albuterol/ Ipratropium (Albuterol/ Ipratropium) 3 ml Q4H PRN HHN Shortness of Breath 04/17/17 16:30 04/22/17 16:29 Allopurinol (Allopurinol) 300 mg DAILY ORAL 04/18/17 09:00 05/18/17 08:59 04/18/17 09:06 Aripiprazole (Abilify) 5 mg BEDTIME ORAL 04/17/17 21:00 05/17/17 20:59 04/18/17 21:00 Aspirin (Ecotrin) 81 mg DAILY ORAL 04/18/17 14:00 05/18/17 13:59 04/18/17 14:09 Atorvastatin Calcium (Lipitor) 20 mg BEDTIME ORAL 04/18/17 21:00 05/18/17 20:59 04/18/17 21:00 Benazepril HCl (Lotensin) 10 mg DAILY ORAL 04/18/17 09:00 05/18/17 08:59 04/18/17 09:06 Diltiazem HCl (Cardizem) 10 mg Q1H PRN IV heart rate more than 120, 04/17/17 16:30 05/17/17 16:29 Enalaprilat (Vasotec) 2.5 mg Q6H PRN IV sbp more than 160 04/17/17 16:30 05/17/17 16:29 Heparin Sodium (Porcine) (Heparin 5000 units/ml) 5,000 units EVERY 12 HOURS SUBQ 04/17/17 21:00 05/17/17 20:59 04/18/17 09:07 Morphine Sulfate (Morphine Sulfate) 2 mg Q4H PRN IVP severe Pain (Pain Scale 7-10) 04/17/17 16:30 04/24/17 16:29 04/18/17 17:58 Nitroglycerin (Ntg) 0.4 mg Every 5 Minutes PRN SL Prn Chest Pain 04/17/17 16:30 05/17/17 16:29 Ondansetron HCl (Zofran) 4 mg Q6H PRN IVP Nausea & Vomiting 04/17/17 16:30 05/17/17 16:29 Pantoprazole (Protonix) 40 mg DAILY ORAL 04/18/17 09:00 05/18/17 08:59 04/18/17 09:06 Paroxetine HCl (Paxil) 10 mg DAILY ORAL 04/18/17 09:00 05/18/17 08:59 04/18/17 09:06 Phenytoin (Dilantin) 200 mg BEDTIME ORAL 04/17/17 21:00 05/17/17 20:59 04/18/17 21:00 Polyethylene Glycol (Miralax) 17 gm DAILYPRN PRN ORAL Constipation 04/17/17 16:30 05/17/17 16:29 Regadenoson (Lexiscan) 0.4 mg ONCE PRN IV STRESS TEST 04/17/17 20:15 04/18/17 23:59 Risperidone (RisperDAL) 2 mg BID ORAL 04/17/17 18:00 05/17/17 17:59 04/18/17 17:12 Temazepam (Restoril) 15 mg HSPRN PRN ORAL Insomnia 04/17/17 16:30 04/24/17 16:29 Assessment/Plan Status: stable Assessment/Plan schizoaffectice risperdal 6mg qhs paxil 20mg qh Tracey Lorenzo M.D. Apr 18, 2017 22:45
[2017-04-19] MEDS ORDERED: PARoxetine 10mg tab ORAL SCH (21:00)
--- NOTE | 2017-04-20 10:11 | Discharge Summary ---
Discharge Summary Hospital Course Date of Admission Apr 17, 2017 at 12:27 Date of Discharge Apr 18, 2017 at 23:28 Admitting Diagnosis ACUTE CORONARY SYNDROME HPI Gino Geronimo is a 56 year old male who was admitted on Apr 17, 2017 at 12:27 for Acute Coronary Syndrome Hospital Course [id number] Discharge Discharge Disposition Patient was discharged to SNF/Subacute Facility(03) Discharge Diagnoses: Carolina Barrios NP Apr 20, 2017 10:11
--- NOTE | 2017-04-20 17:00 | Discharge Summary 2 SIG ---
DATE OF ADMISSION: 04/17/2017 DATE OF DISCHARGE: 04/18/2017 CONSULTANTS: 1. Munir Rosa M.D. 2. Tracey Hatfield M.D. BRIEF HOSPITAL COURSE: The patient is a 56-year-old male with history of diabetes mellitus, psychosis, history of coronary artery disease with stent, diabetes mellitus, permanent pacemaker implantation, who lives at senior care presented to ED complaining of chest pain, described to be pressure like and located on the left chest, which is nonradiating. He was given aspirin and nitroglycerin x3 by EMS with improvement of symptoms. He admits to being a smoker. On evaluation at the ED, blood work did not show any leukocytosis. Initial troponin was negative. Urine toxicology was negative. EKG was in normal sinus rhythm with no acute ischemic changes. Chest x-ray showed no acute process with left-sided pacemaker seen on the left chest. Due to his risk factors, he was admitted to telemetry for cardiac monitoring. He was seen by Dr. Rosa. EKG and cardiac troponins were monitored. He had an echocardiogram done that showed ejection fraction of 55% to 60% with no evidence of left ventricular hypertrophy. No pericardial or pleural effusion. No aortic regurgitation. Cardiac troponins were negative. Cholesterol panel showed LDL of 100. TSH was normal. He was also seen by Dr. Hatfield. The patient has schizophrenia and was anxious. Abilify was discontinued. He was given Risperdal 6 mg at bedtime and Paxil 20 mg daily. He underwent a myocardial perfusion scan on 04/18/2017, results were nonischemic. There was a small fixed apical and anteroseptal perfusion defect likely related to stated history of prior infarct. It was negative for ischemia at the level of stress achieved. The patient was cleared for discharge home and was advised to follow up with PMD. FINAL DIAGNOSES: 1. Coronary artery disease. 2. Diabetes mellitus. 3. Hypertension. 4. Prior pacemaker implantation. 5. Hypertension. 6. Seizure disorder. 7. Schizoaffective disorder. 8. Liver cirrhosis. 9. Diabetes mellitus type 2. DISPOSITION: The patient was discharged back to [facility]. DISCHARGE MEDICATIONS: Refer to medication list. Continue with aspirin and Lipitor. Anusha Leon M.D. I have been assigned to dictate discharge summary on this account and I was not involved in the patient's management. Carolina Barrios N.P. DR: MONICO JOB#: [id number] CC: AZAEL
--- NOTE | 2017-04-26 18:50 | Cardiology Report ---
APPROVED REPORT EKG Measurement Heart [id number] Normal sinus rhythm Possible Left atrial enlargement Borderline ECG
== END 2017-04-18 23:28 | DRG 303 ==
LOC: EDBD 11:56 → EMR 12:22 → 2E 12:27 → EDBEDREQ 12:59
DX: I25.119 Atherosclerotic heart disease of native coronary artery with unspecified angina pectoris (principal); F25.9 Schizoaffective disorder, unspecified; K74.60 Unspecified cirrhosis of liver; E11.9 Type 2 diabetes mellitus without complications; I10 Essential (primary) hypertension; Z95.0 Presence of cardiac pacemaker; G40.909 Epilepsy, unspecified, not intractable, without status epilepticus; Z88.6 Allergy status to analgesic agent; Z88.0 Allergy status to penicillin; F17.200 Nicotine dependence, unspecified, uncomplicated; B19.20 Unspecified viral hepatitis C without hepatic coma; J44.9 Chronic obstructive pulmonary disease, unspecified; K21.9 Gastro-esophageal reflux disease without esophagitis
CPT/HCPCS: 36415; 71045; 78452; 80053; 80061; 80307; 82550; 82553; 82962; 83880; 84443; 84484; 85025; 85610; 85730; 86140; 87081; 93005; 93017; 93306; 94664; 99285

== ENCOUNTER 2017-06-06 22:21 | Emergency (ER) | payer MEDICARE, MEDICAID ==
[~2017-06-06] VITALS: Ht 200.7 cm; Wt 94.3 kg
[2017-06-06] MEDS ORDERED: PAXIL10 MG ORAL (23:05)
[2017-06-06] MEDS ORDERED: COGENTIN1 MG ORAL (23:05)
[2017-06-06] MEDS ORDERED: SERTRALINE HCL50 MG ORAL (23:05)
[2017-06-06] MEDS ORDERED: FLEET ENEMA133 ML RECTAL (23:05)
[2017-06-06] MEDS ORDERED: GABAPENTIN300 MG ORAL (23:05)
[2017-06-06] MEDS ORDERED: COLACE100 MG ORAL (23:05)
[2017-06-06] MEDS ORDERED: METFORMIN HCL500 M1 ORAL (23:05)
[2017-06-06] MEDS ORDERED: COREG3.125 MG ORAL (23:05)
[2017-06-06] MEDS ORDERED: ALUM-MAG HYDRO360 ML PO (23:05)
[2017-06-06] MEDS ORDERED: MILK OF MA400 MG/51 ORAL (23:05)
[2017-06-06] MEDS ORDERED: KEPPRA500 M4 ORAL (23:05)
[2017-06-06] MEDS ORDERED: DULCOLAX10 MG RC (23:05)
[2017-06-06] MEDS ORDERED: TYLENOL EXTRA500 MG ORAL (23:05)
[2017-06-06] MEDS ORDERED: NITROGLYCERIN0.4 MG SL (23:05)
[2017-06-06] MEDS ORDERED: CRANBERRY450 M3 PO (23:05)
[2017-06-06 23:06] LABS: BASOPHILS % (AUTO) 1.1 % (0.0-2.0); EOSINOPHILS % (AUTO) 3.2 % (0.0-3.0); HEMATOCRIT 40.8 % (42.0-52.0); HEMOGLOBIN 13.6 G/DL (14.2-18.0); LYMPHOCYTES % (AUTO) 45.3 % (20.0-45.0); MEAN CORPUSCULAR VOLUME 88 FL (80-99); MONOCYTES % (AUTO) 7.3 % (1.0-10.0); NEUTROPHILS % (AUTO) 43.1 % (45.0-75.0); PLATELET COUNT 200 K/UL (150-450); RED BLOOD COUNT 4.66 M/UL (4.70-6.10); WHITE BLOOD COUNT 4.3 K/UL (4.8-10.8)
[2017-06-06 23:21] LABS: ANION GAP 8 mmol/L (5-15); BLOOD UREA NITROGEN 18 mg/dL (7-18); CALCIUM 8.7 MG/DL (8.5-10.1); CARBON DIOXIDE 26 MMOL/L (21-32); CHLORIDE 103 MMOL/L (98-107); CREATININE 0.9 MG/DL (0.55-1.30); POTASSIUM 4.2 MMOL/L (3.5-5.1); SODIUM 137 MMOL/L (136-145)
[2017-06-06 23:35] LABS: ALANINE AMINOTRANSFERASE 35 U/L (12-78); ALBUMIN 2.9 G/DL (3.4-5.0); ALBUMIN/GLOBULIN RATIO 0.6 (1.0-2.7); ALKALINE PHOSPHATASE 79 U/L (46-116); ASPARTATE AMINO TRANSFERASE 24 U/L (15-37); BILIRUBIN,TOTAL 0.2 MG/DL (0.2-1.0); CKMB 0.6 NG/ML (0.0-3.6); CREATINE KINASE 120 U/L (26-308)
--- NOTE | 2017-06-07 00:12 | Emergency Room Report ---
History of Present Illness General Chief Complaint: Chest Pain Source: Patient Present Illness HPI This is a 57-year-old male who is a care home patient now. He has a history of cocaine abuse. He has a history of chronic chest pain, epilepsy and COPD. He has chief complaint of chest pain. His been ongoing for a week. He has a cough and congestion. No runny nose. No fever chills. No nausea no vomiting. Denies any other complaint. Pain is 7 out of 10. Receive aspirin and nitroglycerin by EMS. Allergies: Coded Allergies: PENICILLIN (Unverified Allergy, Mild, 10/24/14) IBUPROFEN (Unverified Allergy, Unknown, 07/25/14) PENICILLIN G (Unverified Allergy, Unknown, 04/06/15) PENICILLINS (Unverified Allergy, Unknown, 07/25/14) Patient History Past Medical History: see triage record, old chart reviewed Past Surgical History: other Pertinent Family History: none Social History: Reports: drug use - history of cocaine abuse Immunizations: other Reviewed Nursing Documentation: PMH: Agreed, PSxH: Agreed Nursing Documentation-PMH Hx Cardiac Problems: Yes - chest pain Hx Hypertension: Yes Hx Pacemaker: Yes - Hep C Hx Asthma: Yes Hx Diabetes: Yes Hx Cancer: No Hx Gastrointestinal Problems: Yes - GERD Hx Neurological Problems: Yes Hx Seizures: Yes Hx Headaches: Yes Review of Systems Eye: Denies: eye pain, blurred vision ENT: Denies: ear pain, nose congestion, throat swelling Respiratory: Reports: cough, Denies: shortness of breath Cardiovascular: Reports: chest pain, Denies: palpitations Gastrointestinal: Denies: abdominal pain, diarrhea, nausea, vomiting Musculoskeletal: Denies: back pain, joint pain Skin: Denies: rash Neurological: Denies: headache, numbness Endocrine: Denies: increased thirst, increased urine Hematologic/Lymphatic: Denies: easy bruising All Other Systems: negative except mentioned in HPI Physical Exam Vital Signs Date Time Temp Pulse Resp B/P (MAP) Pulse Ox O2 Delivery O2 Flow Rate FiO2 06/06/17 22:21 98.1 75 16 109/79 100 Room Air 98.1 vitals normal Sp02 EP Interpretation: reviewed, normal General Appearance: well appearing, no apparent distress, alert Head: normocephalic, atraumatic Eyes: bilateral eye PERRL, bilateral eye EOMI ENT: hearing grossly normal, normal pharynx Neck: full range of motion, supple, no meningismus Respiratory: chest non-tender, lungs clear, normal breath sounds Cardiovascular #1: regular rate, rhythm, no murmur Gastrointestinal: normal bowel sounds, non tender, no mass, no organomegaly, no bruit, non-distended Musculoskeletal: back normal, gait/station normal, normal range of motion Psychiatric: mood/affect normal Skin: warm/dry Medical Decision Making Diagnostic Impression: Primary Impression: Chest pain of uncertain etiology Additional Impression: Viral upper respiratory illness ER Course Patient with noncardiac chest pain. No evidence of ACS, PE, dissection to name a few. We'll discharge home. Lab Results Impression labs unremarkable EKG Diagnostic Results Rate: normal Rhythm: NSR ST Segments: no acute changes Rhythm Strip Diag. Results Rhythm Strip Time: 00:11 EP Interpretation: yes Rate: 70 Rhythm: NSR, no PVC's, no ectopy Chest X-Ray Diagnostic Results Chest X-Ray Diagnostic Results : Chest X-Ray Ordered: Yes # of Views/Limited/Complete: 1 View Indication: Chest Pain EP Interpretation: Yes Interpretation: no consolidation, no effusion, no pneumothorax Impression: No acute disease Electronically Signed by: Ramez Juarez MD Last Vital Signs Date Time Temp Pulse Resp B/P (MAP) Pulse Ox O2 Delivery O2 Flow Rate FiO2 06/06/17 22:32 75 16 Room Air 06/06/17 22:21 98.1 109/79 100 98.1 Status: improved Disposition: ER SNF Condition: Stable Referrals: NON PHYSICIAN (PCP) Patient Instructions: Nonspecific Chest Pain Additional Instructions: follow-up with your DrLissa 7 days. Return it worse. RAMEZ JUAREZ M.D. Jun 07, 2017 00:12
[2017-06-07 02:30] VITALS: BP 109/79
--- NOTE | 2017-06-07 10:29 | Diagnostic Imaging Report ---
Indication: Chest pain Technique: One view of the chest Comparison: none Findings: Suboptimal inspiration. There is bilateral basilar atelectasis. Lungs and pleural spaces are otherwise clear. Heart size is normal. There is left chest pacemaker Impression: Hypoventilatory exam with bibasilar atelectasis
--- NOTE | 2017-06-07 15:14 | Cardiology Report ---
APPROVED REPORT EKG Measurement Heart [id number] Normal sinus rhythm Possible Left atrial enlargement Borderline ECG
== END 2017-06-07 02:30 ==
LOC: EDBD 22:21 → EMR 22:42
DX: R07.9 Chest pain, unspecified (principal); J06.9 Acute upper respiratory infection, unspecified; E11.9 Type 2 diabetes mellitus without complications; K21.9 Gastro-esophageal reflux disease without esophagitis; B19.20 Unspecified viral hepatitis C without hepatic coma; Z88.0 Allergy status to penicillin; Z88.6 Allergy status to analgesic agent; I10 Essential (primary) hypertension; G40.909 Epilepsy, unspecified, not intractable, without status epilepticus; J44.9 Chronic obstructive pulmonary disease, unspecified
CPT/HCPCS: 36415; 71045; 80053; 82550; 82553; 84484; 85025; 93005; 99283